=== PATIENT | female | born 1965 | race African-American/Black ===

== ENCOUNTER 2017-07-12 16:35 | Emergency (ER) | payer OTHER ==
[~2017-07-12] VITALS: Ht 172.7 cm; Wt 140.6 kg
[~2017-07-12 16:35] MED LIST: COREG CR10 MG PO; GABAPENTIN300 MG PO; GABAPENTIN600 MG; HUMULIN R100 UNIT/2; ZESTRIL10 MG PO
--- OUTSIDE RECORDS SUMMARY | 2017-07-12 16:37 | XMS REPORT ---
[facility] Address Unknown Phone Unavailable Care Team Providers [employer] Project Manager Name Role Phone Unavailable Unavailable Problems This patient has no known problems. Allergies, Adverse Reactions, Alerts This patient has no known allergies or adverse reactions. Medications This patient has no known medications. Encounters Start Date/Time End Date/Time Encounter Type Admission Type Attending [facility] Facility Care Department Encounter ID 2016-08-24 08:04:19 Inpatient [facility] [id number] 2016-08-23 19:28:09 Inpatient [facility] [id number] 2017-06-14 00:00:00 2017-06-14 00:00:00 Outpatient [facility] [id number] 2017-04-14 00:00:00 2017-04-14 00:00:00 Outpatient [facility] [id number] 2017-04-14 00:00:00 2017-04-14 00:00:00 Outpatient [facility] [id number] 2017-03-30 00:00:00 2017-03-30 00:00:00 Outpatient [facility] [id number] 2017-03-15 09:23:10 2017-03-15 09:23:10 Outpatient [facility] [id number] 2017-03-15 09:16:50 2017-03-15 09:16:50 Outpatient [facility] [id number] 2017-03-08 00:00:00 2017-03-08 00:00:00 Outpatient [facility] [id number] 2017-03-08 00:00:00 2017-03-08 00:00:00 Outpatient [facility] [id number] 2017-02-18 08:59:17 2017-02-18 08:59:17 Outpatient [facility] [id number] 2017-02-10 10:57:48 2017-02-10 10:57:48 Outpatient [facility] [id number] 2017-02-08 15:42:38 2017-02-08 15:42:38 Outpatient [facility] [id number] 2017-02-08 14:24:34 2017-02-08 14:24:34 Outpatient [facility] [id number] 2017-02-08 00:00:00 2017-02-08 00:00:00 Outpatient [facility] [id number] 2017-02-02 00:00:00 2017-02-02 00:00:00 Outpatient [facility] [id number] 2017-01-25 13:47:37 2017-01-25 00:00:00 Inpatient [facility] [id number] 2017-01-24 02:20:57 2017-01-24 02:20:57 Outpatient [facility] [id number] 2017-01-23 23:12:38 2017-01-23 23:12:38 Inpatient [facility] [id number] 2017-01-15 08:13:42 2017-01-15 08:13:42 Outpatient [facility] [id number] 2017-01-11 00:00:00 2017-01-11 00:00:00 Outpatient [facility] [id number] 2017-01-04 13:44:23 2017-01-04 13:44:23 Outpatient [facility] [id number] 2016-12-22 08:57:01 2016-12-22 08:57:01 Outpatient [facility] [id number] 2016-12-04 14:53:20 2016-12-04 14:53:20 Outpatient [facility] [id number] 2016-12-04 14:48:49 2016-12-04 14:48:49 Outpatient [facility] [id number] 2016-12-01 00:00:00 2016-12-01 00:00:00 Outpatient [facility] [id number] 2016-11-30 09:20:34 2016-11-30 09:20:34 Outpatient [facility] [id number] 2016-11-27 11:00:51 2016-11-27 11:00:51 Outpatient [facility] [id number] 2016-11-27 10:08:29 2016-11-27 10:08:29 Outpatient [facility] [id number] 2016-11-27 00:00:00 2016-11-27 00:00:00 Outpatient [facility] [id number] 2016-11-25 00:00:00 2016-11-25 00:00:00 Outpatient [facility] [id number] 2016-11-17 09:48:36 2016-11-17 09:48:36 Outpatient [facility] [id number] 2016-11-06 08:43:11 2016-11-06 08:43:11 Outpatient [facility] [id number] 2016-10-29 09:36:40 2016-10-29 09:36:40 Outpatient [facility] [id number] 2016-10-29 08:25:16 2016-10-29 08:25:16 Outpatient [facility] [id number] 2016-10-28 09:06:46 2016-10-28 09:06:46 Outpatient [facility] [id number] 2016-10-27 09:15:12 2016-10-27 09:15:12 Outpatient [facility] [id number] 2016-10-01 13:09:21 2016-10-01 13:09:21 Outpatient [facility] [id number] 2016-09-29 08:32:53 2016-09-29 08:32:53 Outpatient [facility] [id number] 2016-09-10 11:24:58 2016-09-10 11:24:58 Outpatient [facility] [id number] 2016-09-10 10:40:36 2016-09-10 10:40:36 Outpatient [facility] [id number] 2016-09-07 14:14:50 2016-09-07 14:14:50 Outpatient [facility] [id number] 2016-08-27 10:54:42 2016-08-27 10:54:42 Outpatient [facility] [id number] 2016-08-23 16:48:46 2016-08-23 16:48:46 Emergency [facility] [id number] 2016-08-20 13:49:03 2016-08-20 13:49:03 Outpatient [facility] [id number] 2016-08-20 13:13:07 2016-08-20 13:13:07 Outpatient [facility] [id number]
[2017-07-12 18:10] LABS: BILIRUBIN,URINE NEGATIVE (NEGATIVE); COLOR,URINE YELLOW (YELLOW); KETONES,URINE NEGATIVE (NEGATIVE); LEUKOCYTE ESTERASE ,URINE NEGATIVE (NEGATIVE); NITRITE,URINE NEGATIVE (NEGATIVE); PROTEIN,URINE DIPSTICK NEGATIVE (NEGATIVE); URINE UROBILINOGEN 0.2 mg/dL (0.2 - 1)
[2017-07-12 18:11] LABS: CLARITY,URINE SL CLOUDY (CLEAR)
[2017-07-12 18:27] LABS: BACTERIA,URINE MANY /HPF; EPITHELIAL CELLS,URINE MODERATE /LPF
--- NOTE | 2017-07-12 19:47 | Diagnostic Imaging Report ---
EXAM: CT Abdomen and Pelvis WITH contrast INDICATION: Right flank pain for 2 weeks COMPARISON: None. TECHNIQUE: Abdomen and pelvis were scanned utilizing a multidetector helical scanner from the lung base to the pubic symphysis after administration of IV contrast. Coronal and sagittal reformations were obtained. Routine protocol is performed. IV CONTRAST: None. ORAL CONTRAST: Water RADIATION DOSE: Total DLP: 1211.80 mGy*cm Estimated effective dose: (DLP x 0.015 x size factor) mSv COMPLICATIONS: None FINDINGS: LINES and TUBES: None. LOWER THORAX: Subsegmental atelectasis in the lung bases. HEPATOBILIARY: No focal hepatic lesions. No biliary ductal dilation. GALLBLADDER: Absent SPLEEN: No splenomegaly. PANCREAS: No focal masses or ductal dilatation. ADRENALS: No adrenal nodules KIDNEYS/URETERS: No hydronephrosis. A 7 mm exophytic lesion in the interpolar region of the left kidney (series 3, image 43) is too small to characterize, but likely represents a small cyst. No stones. GI TRACT: No abnormal distention, wall thickening, or evidence of bowel obstruction. Appendix is normal. PELVIC ORGANS/BLADDER: Unremarkable. LYMPH NODES: No lymphadenopathy. VESSELS: Unremarkable. PERITONEUM / RETROPERITONEUM: No free air or fluid. BONES: Multilevel degenerative changes of the thoracic and lumbar spine. SOFT TISSUES: Rectus diastases. Very small, fat-containing umbilical hernia. IMPRESSION: No specific findings to explain the patient's right flank pain Marco Pro MD Signed by: Dr. Marco Pro M.D. on 07/12/2017 7:43 PM
[2017-07-12] MEDS ORDERED: PREDNISONE 20 MG TAB ONE (21:20)
[2017-07-12] MEDS ORDERED: ALBUTEROL/IPRATROPIUM 3 ML NEB ONE (21:21)
== END 2017-07-12 21:09 | disposition home or self-care (01) ==
LOC: ER 16:35
DX: R10.9 Unspecified abdominal pain (principal); N18.9 Chronic kidney disease, unspecified; G62.9 Polyneuropathy, unspecified
CPT/HCPCS: 74176; 81001; 99283

== ENCOUNTER → 2020-06-18 | Day surgery (SDC) | payer OTHER ==
[~2020-06-18] MED LIST changes: +ALLOPURINOL100 MG PO; +AMLODIPINE BESYL5 MG PO; +ASPIRIN81 MG PO; +FENTANYL CITRATE/PF 100MCG/2 ML INJ ONE; +FERROUS SULFAT325 MG PO; +FUROSEMIDE40 MG PO; +LIPITOR10 MG PO; +MIDAZOLAM HCL 2 MG/2 ML VIAL ONE; +NOVOLIN 70100 UNIT/3 SC; +OR PHACO EYE KIT ONE; +PREOP PHACO EYE KIT ONE
[2020-06-18 13:29] VITALS: BP 128/65
== END | disposition home or self-care (01) ==
LOC: OR 09:52
PROVIDERS: ATTEND Ophthalmology
DX: H25.11 Age-related nuclear cataract, right eye (principal); E78.5 Hyperlipidemia, unspecified; G62.9 Polyneuropathy, unspecified; E11.22 Type 2 diabetes mellitus with diabetic chronic kidney disease; I13.0 Hypertensive heart and chronic kidney disease with heart failure and stage 1 through stage 4 chronic kidney disease, or unspecified chronic kidney disease; N18.30 Chronic kidney disease, stage 3 unspecified; Z88.6 Allergy status to analgesic agent; Z79.4 Long term (current) use of insulin; Z79.82 Long term (current) use of aspirin
CPT/HCPCS: 66984; J2250; J3010; U0002; V2632

== ENCOUNTER → 2020-07-02 | Day surgery (SDC) | payer OTHER ==
[~2020-07-02] MED LIST changes: +ASPIRIN325 MG PO
[2020-07-02 12:22] VITALS: BP 127/67
== END | disposition home or self-care (01) ==
LOC: OR 09:03
PROVIDERS: ATTEND Ophthalmology
DX: H25.12 Age-related nuclear cataract, left eye (principal); G62.9 Polyneuropathy, unspecified; D64.9 Anemia, unspecified; E78.5 Hyperlipidemia, unspecified; E11.22 Type 2 diabetes mellitus with diabetic chronic kidney disease; I13.2 Hypertensive heart and chronic kidney disease with heart failure and with stage 5 chronic kidney disease, or end stage renal disease; N18.30 Chronic kidney disease, stage 3 unspecified; I50.9 Heart failure, unspecified; Z88.6 Allergy status to analgesic agent; Z01.812 Encounter for preprocedural laboratory examination; Z20.822 Contact with and (suspected) exposure to COVID-19; Z79.82 Long term (current) use of aspirin; Z79.4 Long term (current) use of insulin
CPT/HCPCS: 66984; J2250; J3010; U0002; V2632